=== PATIENT | female | born 1965 | race Caucasian/White ===

== ENCOUNTER 2016-05-23 19:52 | Emergency (ER) | payer BC ==
[~2016-05-23] VITALS: Ht 152.4 cm; Wt 60.0 kg
[~2016-05-23 19:52] MED LIST: AMOX500T PO; CEPH-443 PO; FERR325C; GLYB5TAB PO; IBUP-1542 PO; LISI10TA PO; MEDR10TA2 PO; MTF1000T; TYL500 PO
[2016-05-23 19:57] VITALS: Ht 152.4 cm; Wt 60.0 kg
[2016-05-23 22:57] LABS: URINE BLOOD (Dip) POC 2+ (NEGATIVE)
--- NOTE | 2016-05-23 23:04 | ERD ---
ER Documentation Chief Complaint Date/Time DATE: 05/23/16 TIME: 23:00 Chief Complaint painful urination, hot water godinez left hand since this morning HPI 51-year-old female presents here in emergency department for complaints of dysuria for 1 month now, patient has had symptoms ever since she had her hysterectomy done, patient had a history of urinary tract infection, was treated before, continues to have the symptoms. Patient noticed a all smelling odor from vaginal area, some clear vaginal discharge. Patient denies any itching. Patient denies abdominal pain or flank pain. Patient is vomiting. Patient denies any fever or chills. Patient also had a burn on the left dorsal aspect of the hand this morning with the hot water, patient is complaining of pain, burning pain, 4/10 scale, is worse upon touching the area. Patient applied Neosporin on it with mild relief. ROS All systems reviewed and are negative except as per history of present illness. Medications Home Meds Active Scripts Cephalexin* (Keflex*) 500 Mg Capsule, 500 MG PO QID for 7 Days, CAP Prov:RAKESH JOHNSON NP 05/24/16 Phenazopyridine Hcl* (Pyridium*) 200 Mg Tab, 200 MG PO TID Y for URINARY PAIN, # 6 TAB Prov:RAKESH JOHNSON NP 05/24/16 Ciprofloxacin Hcl* (Ciprofloxacin Hcl*) 500 Mg Tablet, 500 MG PO BID for 10 Days , TAB Prov:RAKESH JOHNSON NP 05/24/16 Cephalexin* (Keflex*) 500 Mg Capsule, 500 MG PO QID for 5 Days, CAP Prov:SUJATHA MEDEROS MD 12/11/15 Medroxyprogesterone Acetate* (Provera*) 10 Mg Tablet, 10 MG PO DAILY for 5 Days , TAB Prov:SUJATHA MEDEROS MD 12/11/15 Cephalexin* (Keflex*) 500 Mg Capsule, 500 MG PO QID for 7 Days, CAP Prov:NYDIA SAUCEDO 08/20/15 Acetaminophen* (Tylenol*) 500 Mg Tab, 500 MG PO Q4H Y for MILD PAIN LEVEL 1-3, # 20 TAB Prov:SUJATHA MEDEROS MD 03/14/15 Ibuprofen* (Motrin*) 600 Mg Tab, 600 MG PO Q6, #14 TAB Prov:SUJATHA MEDEROS MD 03/14/15 Amoxicillin Trihydrate (Amoxicillin) 500 Mg Tablet, 500 MG PO TID for 10 Days, TAB Prov:SUJATHA MEDEROS MD 03/14/15 Cephalexin* (Keflex*) 500 Mg Capsule, 500 MG PO Q6 for 7 Days, CAP Prov:SUJATHA HERNANDEZ PA-C 01/20/15 Reported Medications Lisinopril* (Prinivil*) 10 Mg Tablet, 10 MG PO DAILY 04/29/11 Glyburide* (Diabeta*) 5 Mg Tablet, 2 TAB PO BID 04/29/11 Ferrous Sulfate (Iron) 325 Mg Capsr 07/06/10 Metformin* (Glucophage*) 1,000 Mg Tablet, BID 07/06/10 Allergies Allergies: Coded Allergies: ciprofloxacin (Verified Allergy, Mild, 05/24/16) Sulfa (Sulfonamide Antibiotics) (Verified Allergy, Unknown, 05/23/16) PMhx/Soc History of Surgery: Yes (TUBAL LIGATION, hysterectomy) Anesthesia Reaction: No Hx Neurological Disorder: No Hx Respiratory Disorders: No Hx Cardiac Disorders: Yes (HTN) Hx Psychiatric Problems: No Hx Miscellaneous Medical Probl: Yes (ASTHMA, IDDM) Hx Alcohol Use: No Hx Substance Use: No Hx Tobacco Use: No Smoking Status: Never smoker FmHx Family History: No coronary disease, No diabetes, No other Physical Exam Vitals Vital Signs Date Time Temp Pulse Resp B/P Pulse Ox O2 Delivery O2 Flow Rate FiO2 05/23/16 19:57 98.6 102 20 146/73 98 Physical Exam GENERAL: The patient is well developed and appropriate for usual state of health, in no apparent distress. CHEST: Clear to auscultation bilaterally. There are no rales, wheezes or rhonchi. HEART: Regular rate and rhythm. No murmurs, clicks, rubs or gallops. No S3 or S4. ABDOMEN: Soft, nontender and nondistended. Good bowel sounds. No rebound or guarding. No gross peritonitis. No gross organomegaly or masses. No Yañez sign or McBurney point tenderness. BACK: No midline or flank tenderness. EXTREMITIES: Equal pulses bilaterally. There is no peripheral clubbing, cyanosis or edema. No focal swelling or erythema. Full range of motion. Grossly neurovascularly intact. NEURO: Alert and oriented. Cranial nerves 2-12 intact. Motor strength in all 4 extremities with 5/5 strength. Sensation grossly intact. Normal speech and gait. SKIN: Noted for by 5 cm first-degree burn wounds on the dorsal aspect of the left hand. No open wounds noted. There is no apparent rash or petechia. The skin is warm and dry. HEMATOLOGIC AND LYMPHATIC: There is no evidence of excessive bruising or lymphedema. No gross cervical, axillary, or inguinal lymphadenopathy. VAGINAL: Noted for the vaginal discharge in the vaginal vault, foul-smelling, no cervical motion tenderness, negative adnexal tenderness noted. Results 24 hrs Laboratory Tests Test 05/23/16 22:55 Bedside Urine Blood 2+ Bedside Urine Glucose (UA) Negative Bedside Urine Ketones (LAB) Negative Bedside Urine Leukocyte Esterase (L 1+ Bedside Urine Nitrite (LAB) Negative Bedside Urine Protein (LAB) Negative Bedside Urine pH (LAB) 6.0 Microbiology [place] Final POLYMORPH. LEUKOCYTE RARE WHITE BLOOD CELLS RARE RED BLOOD CELLS NONE SEEN BACTERIA RARE EPITHELIAL CELLS 1+ MYCELIA NONE SEEN YEAST NONE SEEN HYPHAE NONE SEEN CLUE CELLS NO CLUE CELLS SEEN MOTILE TRICHOMONAS NO MOTILE TRICHOMONAS SEEN Procedures/MDM Medical Decision Making: Patients symptoms are consistent with urinary tract infection. There is low suspicion for pyelonephritis. There is low suspicion for abdominal emergencies at this time. Patients abdominal exam is normal. There is low suspicion for sepsis. Patient appears well and is hemodynamically stable. No vaginitis noted. Urine GC chlamydia is pending but no new sexual partners, low suspicion for STDs. Patient also has a left dorsal hand first-degree burn wound, no open wounds noted. Has an updated tetanus vaccine. No symptoms of any neurovascular compromise. Prescription: Keflex, Pyridium, is advised to follow-up with primary care doctor in 1-2 days for reevaluation of symptoms. Patient was advised to return to emergency department for any worsening symptoms Departure Diagnosis: Primary Impression: UTI (urinary tract infection) Urinary tract infection type: acute cystitis Hematuria presence: without hematuria Qualified Code: N30.00 - Acute cystitis without hematuria Additional Impression: First degree burn injury Condition: Stable Patient Instructions: Burn, First Degree, Understanding Urinary Tract Infections (UTIs) Additional Instructions: Prescription: Ciprofloxacin, Pyridium, is advised to follow-up with primary care doctor in 1-2 days for reevaluation of symptoms. Patient was advised to return to emergency department for any worsening symptoms RAKESH JOHNSON NP May 23, 2016 23:04
[2016-05-24] MEDS ORDERED: CIPR500T4 PO (01:34)
[2016-05-24] MEDS ORDERED: PHEN-538 PO (01:34)
[2016-05-24] MEDS ORDERED: CEPH-443 PO (02:16)
[2016-05-24 02:18] VITALS: BP 181/84; PULSE 94; RESP 20; TEMP 98.1
== END 2016-05-24 02:18 | disposition home or self-care (01) ==
LOC: FTE 19:52
DX: N30.00 Acute cystitis without hematuria (principal); T23.102A Burn of first degree of left hand, unspecified site, initial encounter; I10 Essential (primary) hypertension; J45.909 Unspecified asthma, uncomplicated; E11.9 Type 2 diabetes mellitus without complications; X11.8XXA Contact with other hot tap-water, initial encounter; Y92.9 Unspecified place or not applicable; Z79.84 Long term (current) use of oral hypoglycemic drugs
CPT/HCPCS: 81003; 87086; 87210; 87591; 99283

== ENCOUNTER 2016-12-18 16:19 | Emergency (ER) | payer MEDICAID, OTHER ==
[~2016-12-18] VITALS: Ht 165.1 cm; Wt 65.5 kg
[~2016-12-18 16:19] MED LIST changes: +PHEN-538 PO
[2016-12-18 17:40] VITALS: Ht 165.1 cm; Wt 65.5 kg
[2016-12-18] MEDS ORDERED: ALBUTEROL 0.083% (NEB) 2.5 MG/3 ML AMP NEB STA (21:05)
[2016-12-18] MEDS ORDERED: DEXAMETHASONE 10 MG/ML 1 ML INJ IM STA (21:05)
--- NOTE | 2016-12-18 21:23 | ERD ---
ER Documentation Chief Complaint Date/Time DATE: 12/18/16 TIME: 21:21 Chief Complaint CAME IN FOR COUGH AND SOB AT HOUR OF SLEEP HPI This is a 51-year-old female with history of asthma presenting to the emergency department stating that she has cough for the past 2 weeks. Patient states that she had some shortness of breath and hour prior to being seen and used her inhaler dulara, but has not given her any relief. Patient denies any chest pain , fevers. ROS All systems reviewed and are negative except as per history of present illness. Medications Home Meds Active Scripts Benzonatate* (Tessalon Perle*) 100 Mg Capsule, 100 MG PO Q8H Y for COUGH, #14 CAP Prov:ARTHUR DANG PA-C 12/18/16 Cephalexin* (Keflex*) 500 Mg Capsule, 500 MG PO QID for 7 Days, CAP Prov:RAKESH JOHNSON NP 05/24/16 Phenazopyridine Hcl* (Pyridium*) 200 Mg Tab, 200 MG PO TID Y for URINARY PAIN, # 6 TAB Prov:RAKESH JOHNSON NP 05/24/16 Cephalexin* (Keflex*) 500 Mg Capsule, 500 MG PO QID for 5 Days, CAP Prov:SUJATHA MEDEROS MD 12/11/15 Medroxyprogesterone Acetate* (Provera*) 10 Mg Tablet, 10 MG PO DAILY for 5 Days , TAB Prov:SUJATHA MEDEROS MD 12/11/15 Cephalexin* (Keflex*) 500 Mg Capsule, 500 MG PO QID for 7 Days, CAP Prov:NYDIA SAUCEDO 08/20/15 Acetaminophen* (Tylenol*) 500 Mg Tab, 500 MG PO Q4H Y for MILD PAIN LEVEL 1-3, # 20 TAB Prov:SUJATHA MEDEROS MD 03/14/15 Ibuprofen* (Motrin*) 600 Mg Tab, 600 MG PO Q6, #14 TAB Prov:SUJATHA MEDEROS MD 03/14/15 Amoxicillin Trihydrate (Amoxicillin) 500 Mg Tablet, 500 MG PO TID for 10 Days, TAB Prov:SUJATHA MEDEROS MD 03/14/15 Cephalexin* (Keflex*) 500 Mg Capsule, 500 MG PO Q6 for 7 Days, CAP Prov:SUJATHA HERNANDEZ Lindsey SALAS 01/20/15 Reported Medications Lisinopril* (Prinivil*) 10 Mg Tablet, 10 MG PO DAILY 04/29/11 Glyburide* (Diabeta*) 5 Mg Tablet, 2 TAB PO BID 04/29/11 Ferrous Sulfate (Iron) 325 Mg Capsr 07/06/10 Metformin* (Glucophage*) 1,000 Mg Tablet, BID 07/06/10 Allergies Allergies: Coded Allergies: ciprofloxacin (Verified Allergy, Mild, 05/24/16) Sulfa (Sulfonamide Antibiotics) (Verified Allergy, Unknown, 05/23/16) PMhx/Soc Medical and Surgical Hx: pt denies Medical Hx, pt denies Surgical Hx History of Surgery: Yes (TUBAL LIGATION, hysterectomy) Anesthesia Reaction: No Hx Neurological Disorder: No Hx Respiratory Disorders: No Hx Cardiac Disorders: Yes (HTN) Hx Psychiatric Problems: No Hx Miscellaneous Medical Probl: Yes (ASTHMA, IDDM) Hx Alcohol Use: No Hx Substance Use: No Hx Tobacco Use: No Smoking Status: Never smoker Physical Exam Vitals Vital Signs Date Time Temp Pulse Resp B/P Pulse Ox O2 Delivery O2 Flow Rate FiO2 12/18/16 21:27 97 22 96 21 12/18/16 17:40 98.4 95 18 137/79 97 Physical Exam GENERAL: well-developed/well-nourished, in no apparent distress, non-toxic appearing HEAD: NC/AT, no swelling noted in frontal or maxillary areas EARS: bilateral tympanic membrane is intact without erythema or effusion NARES: nares patent, rhinorrhea and congested THROAT: oropharynx erythematous without exudates, no tonsil enlargement, post nasal drip EYES: Conjunctiva normal NECK: Supple, no lymphadenopathy PULM: CTA bilaterally, no rales, rhonchi, or wheezing heard CV: Normal S1S2, RRR, good capillary refill GI: Soft, non-distended, normal bowel sounds, non-tender BACK: No midline tenderness, no masses EXT No clubbing, cyanosis, or edema NEURO: Alert and Orientated SKIN: Intact, normal turgor PSYCH: Normal mood and mentation Results 24 hrs Current Medications Medications (Trade) Dose Ordered Sig/Justice Route PRN Reason Start Time Stop Time Status Last Admin Dose Admin Albuterol (Proventil 0.083% (Neb)) 5 mg ONCE STAT NEB 12/18/16 21:05 12/18/16 21:06 DC 12/18/16 21:27 Dexamethasone (Decadron) 10 mg ONCE STAT IM 12/18/16 21:05 12/18/16 21:06 DC 12/18/16 21:14 Procedures/MDM 51-year-old female with history of asthma presenting to the emergency department with cough for the past 2 weeks, and shortness of breath for an hour prior to arrival. Patient appears well, no evidence of respiratory distress. Patient has stable vital signs.RT was consulted, patient was given albuterol. I have reassessed her she states that she feels better. Patient was given Decadron. Chest x-ray did not show evidence of infiltrates, pneumothorax or pleural effusion. Patient stable to be discharged home to follow-up with primary care. Departure Diagnosis: Primary Impression: Cough Condition: Stable ARTHUR DANG PA-C Dec 18, 2016 21:23
--- NOTE | 2016-12-18 21:48 | RADRPT ---
PROCEDURE: XR Chest. CLINICAL INDICATION: Shortness of breath. Asthma exacerbation. TECHNIQUE: Single frontal view. COMPARISON: 02/02/2016. FINDINGS: The lungs are clear. The heart size is normal. There is no pleural effusion. There is no pneumothorax. IMPRESSION: 1. Normal chest radiograph. 2. No change from 02/02/2016. RPTAT: QQ .Rosales Davis MD, MD Date Time Electronically viewed and signed by .Rosales Davis MD, MD on 12/18/2016 21:48 .R/
[2016-12-18] MEDS ORDERED: BENZ100C70 PO (21:57)
== END 2016-12-18 22:08 | disposition home or self-care (01) ==
LOC: FTE 16:19
DX: J45.901 Unspecified asthma with (acute) exacerbation (principal); E11.9 Type 2 diabetes mellitus without complications; I10 Essential (primary) hypertension; Z79.84 Long term (current) use of oral hypoglycemic drugs
CPT/HCPCS: 71010; 94664; 96372; J1100; Z7502; Z7610

== ENCOUNTER 2018-02-11 12:16 | Inpatient (IN) | END 2018-02-15 17:53 | disposition home health service (06) | DRG 872 ==

== ENCOUNTER 2018-06-23 18:27 | Emergency (ER) | payer OTHER ==
[~2018-06-23] VITALS: Ht 152.4 cm; Wt 64.5 kg
[~2018-06-23 18:27] MED LIST changes: -AMOX500T PO; -CEPH-443 PO; -FERR325C; -GLYB5TAB PO; -IBUP-1542 PO; +INSU100I33 SC; -LISI10TA PO; +LISI10TA2 PO; +LOSA100T15 PO; -MEDR10TA2 PO; +METF100010 PO; -MTF1000T; -PHEN-538 PO; -TYL500 PO
[2018-06-23 18:46] VITALS: Ht 152.4 cm; Wt 64.5 kg
--- NOTE | 2018-06-23 20:43 | ERD ---
ER Documentation Chief Complaint Chief Complaint COUGH WITH CONGESTION AND WHEEZES, ARM PAIN HPI 53-year-old female presents with complaint of cough and mild wheezing for the past 2 weeks. States that she has had these episodes in the past and thinks that she has mild asthma. She does not take albuterol because she says she is allergic to sulfate. Patient denies fever, night sweats, weight loss, fatigue, hemoptysis, wheezing, dyspnea, pleuritic chest pain, or orthopnea. In addition, this patient states that she has had some right arm pain for the past 6 months. She states that she thinks it is due to a line being placed in that arm 6 months ago. Denies any erythema, edema, fevers, chills, numbness, tingling. Denies past medical history. Denies allergies. Denies medications. Denies surgeries. Denies alcohol, tobacco, or drug use. ROS All systems reviewed and are negative except as per history of present illness. Medications Home Meds Reported Medications Losartan Potassium* (Losartan Potassium*) 100 Mg Tablet, 100 MG PO DAILY, TAB 02/11/18 Insulin Glargine,Hum.rec.anlog (Basaglar Kwikpen U-100) 100 Unit/1 Ml Insu ln.pen, 35 UNIT SC QPM, EA 02/11/18 Insulin Glargine,Hum.rec.anlog (Basaglar Kwikpen U-100) 100 Unit/1 Ml I nsuln.pen, 25 UNIT SC QAM, EA 02/11/18 Lisinopril* (Lisinopril*) 10 Mg Tablet, 10 MG PO DAILY, #30 TAB 02/11/18 Metformin Hcl* (Metformin Hcl*) 1,000 Mg Tablet, 1000 MG PO WITH BREAKFAST DINNE, #60 TAB 02/11/18 Allergies Allergies: Coded Allergies: ciprofloxacin (Verified Allergy, Mild, 02/11/18) Sulfa (Sulfonamide Antibiotics) (Verified Allergy, Unknown, 02/11/18) PMhx/Soc History of Surgery: Yes (hysterectomy ) Anesthesia Reaction: No Hx Neurological Disorder: No Hx Respiratory Disorders: Yes (asthma, iddm) Hx Cardiac Disorders: Yes (htn, DM) Hx Psychiatric Problems: No Hx Miscellaneous Medical Probl: No Hx Alcohol Use: No Hx Substance Use: No Hx Tobacco Use: No FmHx Family History: No diabetes, No coronary disease, No other Physical Exam Vitals Vital Signs Date Temp Pulse Resp B/P (MAP) Pulse Ox O2 O2 Flow FiO2 Time Delivery Rate 06/23/18 98.0 96 17 172/82 98 18:46 (112) Physical Exam Const: No acute distress Head: Atraumatic Eyes: Normal Conjunctiva ENT: Normal External Ears, Nose and Mouth. Neck: Full range of motion. No meningismus. Resp: Clear to auscultation bilaterally Cardio: Regular rate and rhythm, no murmurs Abd: Soft, non tender, non distended. Normal bowel sounds Skin: No petechiae or rashes Back: No midline or flank tenderness Ext: Left arm is nontender to palpation with no edema, erythema, or ecchymosis noted. No bony deformity noted. Overlying skin is intact. Compartments are soft and warm. There is no pallor or cyanosis. Range of motion, distal pulses, and distal sensation is intact. There is normal cap refill. Neur: Awake and alert Psych: Normal Mood and Affect Results 24 hrs Laboratory Tests Test 06/23/18 20:44 POC Beta HCG, Qualitative NEGATIVE Current Medications Medications Dose Sig/Justice Start Time Status Last (Trade) Ordered Route PRN Stop Time Admin Dose Reason Admin Prednisone 40 mg ONCE ONCE 06/23/18 DC 06/23/18 (Prednisone) PO 21:00 20:49 06/23/18 21:01 Procedures/MDM DIAGNOSTIC IMAGING REPORT Patient: JASSI FISCHER : 1965 Age: 53 Sex: F MR #: [id number] DOS: 06/23/182032 Ordering MD: ENEIDA HAMILTON Location: [facility] Room/Bed: PROCEDURE: XR Chest. CLINICAL INDICATION: Cough for 2 weeks. TECHNIQUE: Portable AP semi erect view of the chest was obtained. COMPARISON: 02/02/2016 FINDINGS: The cardiomediastinal silhouette is within normal limits. The lungs are clear. There is no evidence for pleural effusion, pneumothorax or pulmonary vascular congestion. The osseous structures are intact with no evidence for acute abnorm ality. RPTAT:HJJR IMPRESSION: No evidence for acute intrathoracic pathology. Physician Surendra Date Time Electronically viewed and signed by Solis Phillips Physician on 06/23/2018 21:28 JR/ CC: ZACKENEIDA LAL [id number] Chest x-ray was ordered and results within normal limits. Therefore low suspicion for pneumonia or any other pulmonary pathology. Patient has mild wheezing on exam but due to her allergy to albuterol decision is made to treat with corticosteroids at this time. Patient given outburst treatment with steroids as well as medication for cough. MDM: I have low suspicion for tubercolosis, pneumonia, pleural effusion, acute heart failure, foreign body aspiration, pulmonary embolism, pneumothorax, or other emergent etiology. Patients O2 sat is normal and is not having difficulty breathing, therefore patient is fit for discharge. patient discharged with strict ER precautions. Patient advised to follow up with PMD. All questions answered at discharge. And advised to follow up with PMD. Patient discharged with strict ER precautions. All questions answered at discharge. Departure Diagnosis: Primary Impression: Cough Condition: Stable ENEIDA HAMILTON Jun 23, 2018 20:43
[2018-06-23] MEDS ORDERED: predniSONE 20 MG TAB PO ONE (21:00)
[2018-06-23] MEDS ORDERED: PROM5SYR2 PO (22:09)
[2018-06-23] MEDS ORDERED: PRED20TA PO (22:09)
[2018-06-23 22:16] VITALS: BP 138/78; PULSE 87; RESP 18
== END 2018-06-23 22:18 | disposition home or self-care (01) ==
LOC: FTE 18:27
DX: R05 Cough (principal); I10 Essential (primary) hypertension; E11.9 Type 2 diabetes mellitus without complications; J45.909 Unspecified asthma, uncomplicated; Z79.4 Long term (current) use of insulin
CPT/HCPCS: 71045; 81025; 99283; J7512

== ENCOUNTER 2018-08-06 16:30 | Emergency (ER) | payer OTHER ==
[~2018-08-06] VITALS: Wt 65.1 kg
[~2018-08-06 16:30] MED LIST changes: +PRED20TA PO; +PROM5SYR2 PO
[2018-08-06] MEDS ORDERED: MECLIZINE 12.5 MG TAB PO ONE (18:30)
[2018-08-06] MEDS ORDERED: MECL-77 PO (19:21)
[2018-08-06] MEDS ORDERED: CEPH-443 PO (19:21)
--- NOTE | 2018-08-06 19:23 | ERD ---
ER Documentation Chief Complaint Chief Complaint dysuria since yesterday HPI 53-year-old female presents with dysuria for the last 2 days. She also has a spinning type dizziness worse with sitting up. She denies any recent URIs, chest pain, shortness of breath, vomiting, abdominal pain, deficits. ROS All systems reviewed and are negative except as per history of present illness. Medications Home Meds Active Scripts Meclizine Hcl* (Meclizine Hcl*) 25 Mg Tablet, 25 MG PO Q8H PRN for DIZZINESS, #15 TAB Prov:SUJATHA MEDEROS MD 08/06/18 Cephalexin* (Keflex*) 500 Mg Capsule, 500 MG PO QID for 5 Days, CAP Prov:SUJATHA MEDEROS MD 08/06/18 Promethazine HCl/Codeine (Prometh-Codein 6.25-10 mg/5 ml) 5 Ml Syrup, 5 ML PO Q4 PRN for COUGH, #4 OZ Prov:ENEIDA HAMILTON 06/23/18 Prednisone* (Prednisone*) 20 Mg Tab, 40 MG PO DAILY for asthma for 4 Days, TAB Prov:ENEIDA HAMILTON 06/23/18 Reported Medications Losartan Potassium* (Losartan Potassium*) 100 Mg Tablet, 100 MG PO DAILY, TAB 02/11/18 Insulin Glargine,Hum.rec.anlog (Basaglar Kwikpen U-100) 100 Unit/1 Ml Insuln.pen, 35 UNIT SC QPM, EA 02/11/18 Insulin Glargine,Hum.rec.anlog (Basaglar Kwikpen U-100) 100 Unit/1 Ml Insuln.pen, 25 UNIT SC QAM, EA 02/11/18 Lisinopril* (Lisinopril*) 10 Mg Tablet, 10 MG PO DAILY, #30 TAB 02/11/18 Metformin Hcl* (Metformin Hcl*) 1,000 Mg Tablet, 1000 MG PO WITH BREAKFAST DINNE, #60 TAB 02/11/18 Allergies Allergies: Coded Allergies: ciprofloxacin (Verified Allergy, Mild, 02/11/18) Sulfa (Sulfonamide Antibiotics) (Verified Allergy, Unknown, 02/11/18) PMhx/Soc History of Surgery: Yes (hysterectomy ) Anesthesia Reaction: No Hx Neurological Disorder: No Hx Respiratory Disorders: Yes (asthma, iddm) Hx Cardiac Disorders: Yes (htn, DM) Hx Psychiatric Problems: No Hx Miscellaneous Medical Probl: No Hx Alcohol Use: No Hx Substance Use: No Hx Tobacco Use: No Smoking Status: Never smoker FmHx Family History: No diabetes, No coronary disease, No other Physical Exam Vitals Vital Signs Date Temp Pulse Resp B/P (MAP) Pulse Ox O2 O2 Flow FiO2 Time Delivery Rate 08/06/18 97.2 96 18 139/82 99 16:33 (101) Physical Exam Const: No acute distress Head: Atraumatic Eyes: Normal Conjunctiva . eyes Lizzie and extraocular movements intact. ENT: Normal External Ears, Nose and Mouth. TMs and oropharynx normal. Neck: Full range of motion. No meningismus. Resp: Clear to auscultation bilaterally Cardio: Regular rate and rhythm, no murmurs Abd: Soft, non tender, non distended. Normal bowel sounds Skin: No petechiae or rashes Back: No midline or flank tenderness Ext: No cyanosis, or edema Neur: Awake and alert. Negative cover uncover test. No reproducible vertigo. Normal gait. No cerebellar signs and negative Romberg and no pronator drift. Cranial nerves II through XII grossly intact. Psych: Normal Mood and Affect Results 24 hrs Laboratory Tests Test 08/06/18 18:33 Urine Color YELLOW Urine Clarity SLIGHTLY CLOUDY Urine pH 6.0 Urine Specific Supply 1.032 Urine Ketones NEGATIVE mg/dL Urine Nitrite NEGATIVE mg/dL Urine Bilirubin NEGATIVE mg/dL Urine Urobilinogen NEGATIVE mg/dL Urine Leukocyte Esterase TRACE Camelia/ul Urine Microscopic RBC 1 /HPF Urine Microscopic WBC 11 /HPF Urine Bacteria FEW /HPF Urine Hemoglobin NEGATIVE mg/dL Urine Glucose 3+ mg/dL Urine Total Protein NEGATIVE mg/dl Current Medications Medications Dose Sig/Justice Start Time Status Last (Trade) Ordered Route PRN Stop Time Admin Dose Reason Admin Meclizine 25 mg ONCE ONCE 08/06/18 DC 08/06/18 HCl PO 18:30 18:34 (Antivert) 08/06/18 18:31 Cephalexin 500 mg ONCE ONCE 08/06/18 08/06/18 (Keflex) PO 19:30 19:10 08/06/18 19:31 Procedures/MDM Urine shows leukocytes and white blood cells. Patient was given Keflex and Antivert. Patient presents with dizziness as well as dysuria since yesterday. She has no concerning signs of deficits, signs or symptoms to suggest central vertigo, central deficits. She will be treated with short course of Antivert, Keflex, fluids, close observation and return precautions for deficits, fevers, chest pain, shortness of breath, new worsening symptoms. EKG: Rate/Rhythm: Normal Sinus Rhythm. Rate equals 87 QRS, ST, T-waves: No changes consistent w/ acute ischemia Impression: No evidence of ischemia or arrhythmia The patient was stable with no new complaints during the ER course. Clinically, there is no current evidence to suggest meningitis, sepsis, acute abdomen, pneumonia, stroke, acute coronary syndrome, pulmonary embolism, aortic dissection or any other emergent condition appearing to require further evaluation or hospitalization. Patient counseled regarding my diagnostic impression and care plan. Prior to discharge all questions answered. Pt agrees with treatment plan and understands strict return precautions. Pt is instructed to follow up with primary care provider within 24-48 hours. Precautionary instructions provided including instructions to return to the ER if not improving or for any worsening or changing symptoms or concerns. Disclaimer: Inadvertent spelling and grammatical errors are likely due to EHR/dictation software use and do not reflect on the overall quality of patient care. Also, please note that the electronic time recorded on this note does not necessarily reflect the actual time of the patient encounter. Departure Diagnosis: Primary Impression: Dizzy Additional Impression: Dysuria Condition: Stable Patient Instructions: Urinary Tract Infections in Women, Inner Ear Problems: Causes of Dizziness (Vertigo) Additional Instructions: Urine shows signs of infection and we will treat for this. May have vertigo as well. Recheck for new worsening symptoms with primary care doctor. SUJATHA MEDEROS MD August 06, 2018 19:23
[2018-08-06] MEDS ORDERED: CEPHALEXIN 500 MG CAP PO ONE (19:30)
[2018-08-06 19:38] VITALS: BP 130/77; PULSE 88; RESP 20
== END 2018-08-06 19:39 | disposition home or self-care (01) ==
LOC: FTE 16:30
DX: R42 Dizziness and giddiness (principal); I10 Essential (primary) hypertension; E11.9 Type 2 diabetes mellitus without complications; Z79.4 Long term (current) use of insulin
CPT/HCPCS: 81001; 93005